=== PATIENT | female | born 1985 | race Caucasian/White ===

== ENCOUNTER 2017-03-20 12:15 | Emergency (ER) | payer MEDICAID, OTHER ==
[~2017-03-20] VITALS: Ht 167.6 cm; Wt 77.2 kg
[2017-03-20 12:21] VITALS: BP 128/76; PULSE 82; RESP 14; TEMP 98.6; O2SAT 96
--- NOTE | 2017-03-20 12:27 | PD ---
Physical Exam Date Seen by Provider: Mar 20, 2017 Time Seen by Provider: 12:26 Narrative Pt presents for evaluation of pain at GT site. VSS, awaiting bed placement. Data Data Last Documented VS Vital Signs Date Time Temp Pulse Resp B/P Pulse Ox O2 Delivery O2 Flow Rate FiO2 03/20/17 12:21 98.6 82 14 128/76 96 MDM Supervised Visit with TOBI: Karen Redd Mar 20, 2017 12:27
[2017-03-20] MEDS ORDERED: SODIUM CHLOR 0.9% 1000 ML INJ 1,000 ML IV SCH (12:57)
[2017-03-20] MEDS ORDERED: MORPHINE SULFATE 4 MG/ML INJ IV PUSH ONE (13:00)
[2017-03-20] MEDS ORDERED: ONDANSETRON HCL 4 MG/2 ML VIAL IVP ONE (13:00)
[2017-03-20] MEDS ORDERED: DIATRIZOATE MEGLUM/DIATRIZOATE SOD 120 ML BTL (for RAD DIAG) G-TUBE ONE (13:20)
--- NOTE | 2017-03-20 13:59 | RADRPT ---
EXAM DATE/TIME: 03/20/2017 13:32 [facility] COMPARISON: No previous studies available for comparison. INDICATIONS : Evaluate G/J tube placement. MEDICAL HISTORY : Irritable bowel syndrome. Hiatal hernia. Pancreatitis. SURGICAL HISTORY : section. Tubal ligation. Heart ablation. Pancreatic stent. ENCOUNTER: Initial ACUITY: 1 day PAIN SCORE: 9/10 LOCATION: upper quadrant FINDINGS: Gastrojejunal feeding tube is present in good position with injected contrast present in the stomach and in normal caliber proximal small bowel loops. No evidence of contrast extravasation. The tube lee ears intact throughout. CONCLUSION: Satisfactory position and appearance of gastrojejunal feeding tube Shelton Santoyo MD on March 20, 2017 at 13:56 Board Certified Radiologist. This report was verified electronically.
[2017-03-20 14:12] LABS: AUTOMATED NEUTROPHIL # 9.5 TH/MM3 (1.8-7.7); BASOPHIL # 0.1 TH/MM3 (0-0.2); BASOPHIL % 0.5 % (0.0-2.0); EOSINOPHIL # 0.1 TH/MM3 (0-0.4); EOSINOPHIL % 0.5 % (0.0-4.0); HEMATOCRIT 40.3 % (35.0-46.0); HEMO FLAGS DIFF FINAL; LYMPH % 22.2 % (9.0-44.0); LYMPHOCYTE # 2.9 TH/MM3 (1.0-4.8); MEAN CELL VOLUME 84.4 FL (80.0-100.0); MEAN CORPUSCULAR HEMOGLOBIN 28.3 PG (27.0-34.0); MEAN CORPUSCULAR HGB CONC 33.5 % (32.0-36.0); NEUT % 71.8 % (16.0-70.0); PLATELET COUNT 314 TH/MM3 (150-450); RED BLOOD COUNT 4.77 MIL/MM3 (4.00-5.30); WHITE BLOOD COUNT 13.3 TH/MM3 (4.0-11.0)
[2017-03-20 14:29] LABS: ANION GAP 11 MEQ/L (5-15); AST (GOT) 16 U/L (15-37); BICARBONATE 25.3 MEQ/L (21.0-32.0); BLOOD UREA NITROGEN 9 MG/DL (7-18); CHLORIDE 105 MEQ/L (98-107); GLOMERULAR FILTRATION RATE 62 ML/MIN (>89); POTASSIUM 3.8 MEQ/L (3.5-5.1); SODIUM (NA) 141 MEQ/L (136-145)
[2017-03-20 14:35] LABS: ALKALINE PHOSPHATASE 100 U/L (45-117); ALT (GPT) 18 U/L (10-53); TOTAL BILIRUBIN ADULT 0.3 MG/DL (0.2-1.0)
[2017-03-20] MEDS ORDERED: CEPH-460 PO (14:47)
--- NOTE | 2017-03-20 14:54 | PD ---
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 Patient has a complicated history including pancreatitis and pancreatic insufficiency for which she has a 2 to feed herself. She is able to tolerate food by mouth but for the most part she's had to use the tube to help her supplement her feedings as she does get pain. She follows with a GI doctor in [place]. She states that she's had normal bowel movements. She states that about 2 days ago one of her kids was rough playing with her and she believes that the tube might have dislodged. She states been able to feed herself however. She is concerned medical she has new pain as well as possible tube displacement. She states that her pain is 6 out of 10. She denies any other medical issues. She is from [place]. She denies any chest pain or shortness of breath. No fevers chills or sweats. Pain is mainly to the area of the abdomen. Per patient she call her GI doctor who recommended that she comes here to get evaluated to make sure she does not have displacement as well as pancreatitis. PFSH Past Medical History Gastrointestinal Disorders: Yes (IBS ) Pancreatitis: Yes (and division ) ?: Not Tubal Ligation: Yes Past Surgical History Section: Yes (x2) Other Surgery: Yes (2 sents in pancrease ) Social History Alcohol Use: No Tobacco Use: No Substance Use: No Allergies-Medications (Allergen,Severity, Reaction): Coded Allergies: Phenergan (Verified Allergy, Severe, 03/20/17) Sulfa (Verified Allergy, Severe, 03/20/17) Reported Meds & Prescriptions Reported Meds & Active Scripts Active Keflex (Cephalexin) 500 Mg Cap 500 Mg PO Q8H 10 Days Review of Systems Except as stated in HPI: all other systems reviewed are Neg Physical Exam Narrative GENERAL: SKIN: Warm and dry. HEAD: Atraumatic. Normocephalic. EYES: Pupils equal and round. No scleral icterus. No injection or drainage. ENT: No nasal bleeding or discharge. Mucous membranes pink and moist. Tongue is midline. No uvula deviation. NECK: Trachea midline. No JVD. CARDIOVASCULAR: Regular rate and rhythm. No murmurs, S3, S4. RESPIRATORY: No accessory muscle use. Clear to auscultation. Breath sounds equal bilaterally. GASTROINTESTINAL: Abdomen soft, non-tender, nondistended. Hepatic and splenic margins not palpable. Patient does have G/J tube which appears to be in position. No sign of infection noted. Patient does have some discharge from the area. MUSCULOSKELETAL: Extremities without clubbing, cyanosis, or edema. No obvious deformities. Full range of motion of the upper and lower extremities bilaterally. 2+ pulses bilaterally. NEUROLOGICAL: Awake and alert. No obvious cranial nerve deficits. Motor grossly within normal limits. Five out of 5 muscle strength in the arms and legs. Normal speech. PSYCHIATRIC: Appropriate mood and affect; insight and judgment normal. Data Data Last Documented VS Vital Signs Date Time Temp Pulse Resp B/P Pulse Ox O2 Delivery O2 Flow Rate FiO2 03/20/17 12:36 86 20 98 Room Air 03/20/17 12:21 98.6 128/76 Orders Complete Blood Count With Diff (03/20/17 12:57) Comprehensive Metabolic Panel (03/20/17 12:57) Lipase (03/20/17 12:57) Lactic Acid (03/20/17 12:57) Iv Access Insert/Monitor (03/20/17 12:57) Morphine Inj (Morphine Inj) (03/20/17 13:00) Ondansetron Inj (Zofran Inj) (03/20/17 13:00) Sodium Chlor 0.9% 1000 Ml Inj (Ns 1000 M (03/20/17 12:57) Abdomen, Kub Only (03/20/17 ) Diatrizoate Liq ( Gastroview Liq) (03/20/17 13:20) Labs Laboratory Tests Test 03/20/17 13:58 White Blood Count 13.3 TH/MM3 Red Blood Count 4.77 MIL/MM3 Hemoglobin 13.5 GM/DL Hematocrit 40.3 % Mean Corpuscular Volume 84.4 FL Mean Corpuscular Hemoglobin 28.3 PG Mean Corpuscular Hemoglobin 33.5 % Concent Red Cell Distribution Width 13.0 % Platelet Count 314 TH/MM3 Mean Platelet Volume 7.9 FL Neutrophils (%) (Auto) 71.8 % Lymphocytes (%) (Auto) 22.2 % Monocytes (%) (Auto) 5.0 % Eosinophils (%) (Auto) 0.5 % Basophils (%) (Auto) 0.5 % Neutrophils # (Auto) 9.5 TH/MM3 Lymphocytes # (Auto) 2.9 TH/MM3 Monocytes # (Auto) 0.7 TH/MM3 Eosinophils # (Auto) 0.1 TH/MM3 Basophils # (Auto) 0.1 TH/MM3 CBC Comment DIFF FINAL Differential Comment Sodium Level 141 MEQ/L Potassium Level 3.8 MEQ/L Chloride Level 105 MEQ/L Carbon Dioxide Level 25.3 MEQ/L Anion Gap 11 MEQ/L Blood Urea Nitrogen 9 MG/DL Creatinine 1.03 MG/DL Estimat Glomerular Filtration 62 ML/MIN Rate Random Glucose 92 MG/DL Lactic Acid Level 2.1 mmol/L Calcium Level 9.4 MG/DL Total Bilirubin 0.3 MG/DL Aspartate Amino Transf 16 U/L (AST/SGOT) Alanine Aminotransferase 18 U/L (ALT/SGPT) Alkaline Phosphatase 100 U/L Total Protein 8.1 GM/DL Albumin 3.9 GM/DL Lipase 200 U/L MDM Medical Decision Making Medical Screen Exam Complete: Yes Emergency Medical Condition: Yes Medical Record Reviewed: Yes Interpretation(s) CBC & BMP Diagram 03/20/17 13:58 LFTS WNL Lipase WNL lactic acid 2.1 Last Impressions Abdomen X-Ray 03/20/17 0000 Signed Impressions: Service Date/Time: Thursday, March 20, 2017 13:32 - CONCLUSION: Satisfactory position and appearance of gastrojejunal feeding tube Shelton Santoyo MD Differential Diagnosis Medical advice issue versus abdominal pain versus acute on chronic pain versus chronic pain versus infection Narrative Course 31-year-old female that presents to the ED for evaluation of abdominal pain. Patient was properly examined and was found to have signs and symptoms consistent appears to be medically by seizure. Likely chronic pain as well. Labs and imaging were done and did show slightly elevated what looks second with slightly lactic acidosis. More likely from dehydration. X-ray did not show any sign of dislodgment and this tube appears to be working. Case was discussed in my attending Dr. Ferraro who went in and evaluated the patient and recommended a recheck of the lactic acid. Patient herself does not want to wait anymore and wants to leave AMA. My attending spoke with the patient about AMA. AMA: The risks of leaving against medical advice without further evaluation treatment were discussed with the patient. These risks include cardiac dysfunction, cardiac dysrhythmia, possible heart attack, possible stroke or . The patient indicated understanding of these risks and appeared to have the capacity to make this decision. I will give her a prescription for Keflex to cover for bacterial infection although this appears to be less likely. Diagnosis Primary Impression: Left against medical advice Patient Instructions: General Instructions Additional Instructions: Follow with PCP. See ED worsening symptoms. Med/Other Pt SpecificInfo: Prescription(s) given Scripts Cephalexin (Keflex)500 Mg [id number] Mg PO Q8H 10 Days Ref 0 Prov:Analy Ferraro MD 03/20/17 Disposition: 07 AGAINST MEDICAL ADVICE Condition: Stable Manolo Spivey Mar 20, 2017 14:54
--- NOTE | 2017-03-20 15:06 | PD ---
Physical Exam Narrative GENERAL: Well-nourished, well-developed patient. SKIN: Warm and dry. GJ tube site shows no surrounding cellulitic changes HEAD: Normocephalic and atraumatic. EYES: No injection or drainage. ENT: No nasal drainage noted. NECK: Supple, trachea midline. CARDIOVASCULAR: Regular rate and rhythm RESPIRATORY: No increased effort. No accessory muscle use. GASTROINTESTINAL: Abdomen soft, mild tenderness diffusely, nondistended. NEUROLOGICAL: Awake and alert. Motor and sensory grossly within normal limits. Normal speech. Data Data Last Documented VS Vital Signs Date Time Temp Pulse Resp B/P Pulse Ox O2 Delivery O2 Flow Rate FiO2 03/20/17 12:36 86 20 98 Room Air 03/20/17 12:21 98.6 128/76 Orders Complete Blood Count With Diff (03/20/17 12:57) Comprehensive Metabolic Panel (03/20/17 12:57) Lipase (03/20/17 12:57) Lactic Acid (03/20/17 12:57) Iv Access Insert/Monitor (03/20/17 12:57) Morphine Inj (Morphine Inj) (03/20/17 13:00) Ondansetron Inj (Zofran Inj) (03/20/17 13:00) Sodium Chlor 0.9% 1000 Ml Inj (Ns 1000 M (03/20/17 12:57) Abdomen, Kub Only (03/20/17 ) Diatrizoate Liq ( Gastroview Liq) (03/20/17 13:20) Labs Laboratory Tests Test 03/20/17 13:58 White Blood Count 13.3 TH/MM3 Red Blood Count 4.77 MIL/MM3 Hemoglobin 13.5 GM/DL Hematocrit 40.3 % Mean Corpuscular Volume 84.4 FL Mean Corpuscular Hemoglobin 28.3 PG Mean Corpuscular Hemoglobin 33.5 % Concent Red Cell Distribution Width 13.0 % Platelet Count 314 TH/MM3 Mean Platelet Volume 7.9 FL Neutrophils (%) (Auto) 71.8 % Lymphocytes (%) (Auto) 22.2 % Monocytes (%) (Auto) 5.0 % Eosinophils (%) (Auto) 0.5 % Basophils (%) (Auto) 0.5 % Neutrophils # (Auto) 9.5 TH/MM3 Lymphocytes # (Auto) 2.9 TH/MM3 Monocytes # (Auto) 0.7 TH/MM3 Eosinophils # (Auto) 0.1 TH/MM3 Basophils # (Auto) 0.1 TH/MM3 CBC Comment DIFF FINAL Differential Comment Sodium Level 141 MEQ/L Potassium Level 3.8 MEQ/L Chloride Level 105 MEQ/L Carbon Dioxide Level 25.3 MEQ/L Anion Gap 11 MEQ/L Blood Urea Nitrogen 9 MG/DL Creatinine 1.03 MG/DL Estimat Glomerular Filtration 62 ML/MIN Rate Random Glucose 92 MG/DL Lactic Acid Level 2.1 mmol/L Calcium Level 9.4 MG/DL Total Bilirubin 0.3 MG/DL Aspartate Amino Transf 16 U/L (AST/SGOT) Alanine Aminotransferase 18 U/L (ALT/SGPT) Alkaline Phosphatase 100 U/L Total Protein 8.1 GM/DL Albumin 3.9 GM/DL Lipase 200 U/L [facility] Supervised Visit with TOBI: Yes Interpretation(s) CBC & BMP Diagram 03/20/17 13:58 Last 24 hours Impressions Abdomen X-Ray 03/20/17 0000 Signed Impressions: Service Date/Time: Monday, March 20, 2017 13:32 - CONCLUSION: Satisfactory position and appearance of gastrojejunal feeding tube Shelton Santoyo MD Narrative Course I, Dr. ferraro, have reviewed the advance practice practitioner's documentation and am in agreement, met with the patient face to face, made the diagnosis, and the medical decision making was done by me. *My assessment and Findings: 31-year-old female states that she's been having abdominal pain and feels like her GJ tube could've been displaced as she is sleeping in bed with her children on vacation. GJ tube is in place on imaging. Blood work shows mild elevation white count and lactic acidosis. I advised patient that this needs repeated to make sure trending down and discussed observation and further workup and she states she cannot stay and wants to leave against advice. AMA: The risks of leaving against medical advice without further evaluation treatment were discussed with the patient. These risks include cardiac dysfunction, cardiac dysrhythmia, possible heart attack, possible stroke or . The patient indicated understanding of these risks and appeared to have the capacity to make this decision. Diagnosis Primary Impression: Abdominal pain Qualified Code: R10.9 - Abdominal pain, unspecified abdominal location Patient Instructions: General Instructions Additional Instruction: Follow with PCP. See ED worsening symptoms. Scripts Cephalexin (Keflex)500 Mg [id number] Mg PO Q8H 10 Days Ref 0 Prov:Analy Ferraro MD 03/20/17 Disposition: 07 AGAINST MEDICAL ADVICE Condition: Stable Analy Ferraro MD Mar 20, 2017 15:06
== END 2017-03-20 18:07 | disposition left against medical advice (07) ==
LOC: NEPE 12:15
DX: R10.9 Unspecified abdominal pain (principal); E87.2 Acidosis
CPT/HCPCS: 74000; 80053; 83605; 83690; 85025; 96374; 96375; 99284; J2270; J2405; J7030; Q9963